=== PATIENT | female | born 1965 | race Caucasian/White ===

== ENCOUNTER 2018-03-07 19:55 | Emergency (ER) | payer OTHER ==
[~2018-03-07] VITALS: Ht 165.1 cm; Wt 71.7 kg
[2018-03-07 20:05] VITALS: Ht 165.1 cm; Wt 71.7 kg
[2018-03-07 20:47] LABS: BASOPHIL % 0.5 % (0-2); PLATELET COUNT 277 x10^3mcL (130-400); RED CELL DISTRIBUTION WIDTH 13.4 % (11.5-14.5)
[2018-03-07 20:52] LABS: CALCIUM 8.7 mg/dL (8.5-10.1); CARBON DIOXIDE 30.2 mmol/L (21-32); CHLORIDE SERUM 104 mmol/L (98-107); CREATININE SERUM 0.8 mg/dL (0.6-1.0); GFR1 > 60 mL/min; GLUCOSE SERUM 91 mg/dL (74-106); POTASSIUM SERUM 3.9 mmol/L (3.5-5.1); SODIUM SERUM 141 mmol/L (136-145)
[2018-03-07 23:52] VITALS: BP 128/80
== END 2018-03-07 23:52 | disposition home or self-care (01) ==
LOC: ED 19:55
PROVIDERS: Emergency Medicine
DX: M54.2 Cervicalgia (principal); R51 Headache
CPT/HCPCS: J2270; J3490; J7030; Q0162; Q9967

== ENCOUNTER 2018-10-17 16:21 | Emergency (ER) | payer OTHER ==
[~2018-10-17] VITALS: Ht 165.1 cm; Wt 76.7 kg
[2018-10-17 16:30] VITALS: Ht 165.1 cm; Wt 76.7 kg
[2018-10-17 20:31] VITALS: BP 134/83
== END 2018-10-17 20:31 | disposition home or self-care (01) ==
LOC: ED 16:21
DX: M54.5 Low back pain (principal); R10.31 Right lower quadrant pain
CPT/HCPCS: J1885; Q0092

== ENCOUNTER 2019-01-23 09:37 | Emergency (ER) | payer OTHER ==
[~2019-01-23] VITALS: Ht 165.1 cm; Wt 73.5 kg
[2019-01-23 09:48] VITALS: Ht 165.1 cm; Wt 73.5 kg
[2019-01-23 11:04] VITALS: BP 109/70
== END 2019-01-23 11:04 | disposition home or self-care (01) ==
LOC: ED 09:37
DX: H01.006 Unspecified blepharitis left eye, unspecified eyelid (principal); H01.003 Unspecified blepharitis right eye, unspecified eyelid; Z98.890 Other specified postprocedural states